=== PATIENT | female | born 1940 | race Caucasian/White ===

== ENCOUNTER 2017-10-03 15:22 | Inpatient (IN) | payer OTHER ==
[~2017-10-03] VITALS: Ht 165.1 cm; Wt 80.7 kg
[2017-10-03] MEDS ORDERED: MORPHINE SULFATE 4 MG/ML, 1ML IVPush PRN (16:00)
[2017-10-03] MEDS ORDERED: ONDANSETRON 2MG/ML, 2ML IVPush ONE (16:00)
[2017-10-03] MEDS ORDERED: NITROGLYCERIN SINGLE TAB 0.4 MG SL PRN (16:00)
[2017-10-03] MEDS ORDERED: SODIUM CHLORIDE FLUSH 10ML SYR IVF ONE (16:00)
[2017-10-03] MEDS ORDERED: NITROGLYCERIN SINGLE TAB 0.4 MG SL ONE (16:08)
[2017-10-03 16:30] LABS: BASOPHILS # (AUTO) 0.04 x10^3/uL (0-0.1); BASOPHILS % (AUTO) 0 % (0-1); EOSINOPHILS # (AUTO) 0.07 x10^3/uL (0-0.4); EOSINOPHILS % (AUTO) 1 % (1-7); LYMPHOCYTES % (AUTO) 21 % (22-44); MD NO; MEAN CORPUSCULAR HEMOGLOBIN 30.3 pg (27.0-34.8); MEAN CORPUSCULAR HGB CONC 33.2 g/dL (32.4-35.8); MEAN CORPUSCULAR VOLUME 91.4 fL (80-100); MEAN PLATELET VOLUME 7.2 fL (7.4-10.4); MONOCYTES # (AUTO) 0.58 x10^3/uL (0.2-0.8); MONOCYTES % (AUTO) 6 % (2-9); NEUTROPHILS # (AUTO) 6.81 x10^3/uL (1.8-6.8); NEUTROPHILS % (AUTO) 72 % (42-75); PLATELET COUNT 281 x10^3/uL (130-400); RED BLOOD COUNT 4.74 x10^6/uL (3.82-5.3); RED CELL DISTRIBUTION WIDTH 14.5 % (9.6-15.2)
[2017-10-03 16:41] LABS: ALANINE AMINOTRANSFERASE 17 U/L (12-78); ALBUMIN 3.7 g/dL (3.4-5.0); ANION GAP 8 mmol/L (5-15); CALCIUM 8.8 mg/dL (8.5-10.1); CHLORIDE 106 mmol/L (98-107); CREATININE 0.92 mg/dL (0.55-1.02); INTERNATIONAL NORMALIZED RATIO 1.02 (0.93-1.1); PROTHROMBIN TIME 10.6 Seconds (9.6-11.5)
[2017-10-03 16:46] LABS: ALKALINE PHOSPHATASE 90 U/L (45-117); BILIRUBIN,TOTAL 0.4 mg/dL (0.2-1.0); TOTAL PROTEIN 7.7 g/dL (6.4-8.2)
[2017-10-03 16:48] LABS: TROPONIN I 0.978 ng/mL (0.000-0.045)
[2017-10-03] MEDS ORDERED: OMNIPAQUE 350 MG/ML, 100ML BOTTLE ONE (17:23)
[2017-10-03] MEDS ORDERED: HEPARIN 25,000 UNITS/500ML PMX 500 ML ONE (17:24)
[2017-10-03] MEDS ORDERED: HEPARIN 5,000 UNITS/ML, 1ML ONE (17:24)
[2017-10-03] MEDS ORDERED: HEPARIN 25,000 UNITS/500ML PMX 500 ML IV PRN ×2 (17:30→18:30)
[2017-10-03] MEDS ORDERED: HEPARIN 5,000 UNITS/ML, 1ML IV PRN (17:30)
[2017-10-03] MEDS ORDERED: HEPARIN 5,000 UNITS/ML, 1ML IV ONE ×2 (17:30→18:30)
[2017-10-03] MEDS ORDERED: SODIUM CHLORIDE FLUSH 10ML SYR IVF PRN (18:00)
[2017-10-03] MEDS ORDERED: ONDANSETRON 2MG/ML, 2ML IVPush PRN (18:30)
[2017-10-03] MEDS ORDERED: POLYETHYLENE GLYCOL 17 GM PACKET PO PRN (18:30)
[2017-10-03] MEDS ORDERED: BISACODYL 10 MG SUPP PR PRN (18:30)
[2017-10-03] MEDS ORDERED: ACETAMINOPHEN 325 MG TABLET PO PRN (18:30)
[2017-10-03 19:30] LABS: INTERNATIONAL NORMALIZED RATIO 1.03 (0.93-1.1); PROTHROMBIN TIME 10.7 Seconds (9.6-11.5)
[2017-10-03] MEDS ORDERED: WARFARIN 5 MG TABLET PO-COUM ONE (21:30)
[2017-10-03 21:44] VITALS: BP 153/96
[2017-10-03 23:30] LABS: TROPONIN I 0.602 ng/mL (0.000-0.045)
[2017-10-03] MEDS: HEPARIN 5,000 UNITS/ML, 1ML IV PRN (23:38)
[2017-10-03] MEDS: SODIUM CHLORIDE FLUSH 10ML SYR IVF SCH (23:45)
[2017-10-04 00:35] VITALS: BP 127/80
[2017-10-04 05:54] LABS: BASOPHILS # (AUTO) 0.05 x10^3/uL (0-0.1); BASOPHILS % (AUTO) 1 % (0-1); EOSINOPHILS # (AUTO) 0.18 x10^3/uL (0-0.4); EOSINOPHILS % (AUTO) 2 % (1-7); LYMPHOCYTES # (AUTO) 2.82 x10^3/uL (1-3.4); LYMPHOCYTES % (AUTO) 34 % (22-44); MD NO; MEAN CORPUSCULAR HEMOGLOBIN 30.7 pg (27.0-34.8); MEAN CORPUSCULAR HGB CONC 33.4 g/dL (32.4-35.8); MEAN CORPUSCULAR VOLUME 92.1 fL (80-100); MEAN PLATELET VOLUME 7.5 fL (7.4-10.4); MONOCYTES # (AUTO) 0.55 x10^3/uL (0.2-0.8); MONOCYTES % (AUTO) 7 % (2-9); NEUTROPHILS # (AUTO) 4.72 x10^3/uL (1.8-6.8); NEUTROPHILS % (AUTO) 57 % (42-75); PLATELET COUNT 254 x10^3/uL (130-400); RED BLOOD COUNT 4.37 x10^6/uL (3.82-5.3); RED CELL DISTRIBUTION WIDTH 14.4 % (9.6-15.2)
[2017-10-04 06:07] LABS: CHLORIDE 108 mmol/L (98-107)
[2017-10-04 06:09] LABS: INTERNATIONAL NORMALIZED RATIO 1.02 (0.93-1.1); PROTHROMBIN TIME 10.6 Seconds (9.6-11.5)
[2017-10-04 06:28] LABS: ALANINE AMINOTRANSFERASE 15 U/L (12-78); ALBUMIN 3.2 g/dL (3.4-5.0); ALKALINE PHOSPHATASE 79 U/L (45-117); ANION GAP 12 mmol/L (5-15); BILIRUBIN,TOTAL 0.5 mg/dL (0.2-1.0); CALCIUM 8.3 mg/dL (8.5-10.1); CREATININE 0.83 mg/dL (0.55-1.02); TOTAL PROTEIN 6.8 g/dL (6.4-8.2)
[2017-10-04 07:25] VITALS: BP 122/83
[2017-10-04] MEDS: SENNA/DOCUSATE TABLET PO SCH (09:00)
[2017-10-04] MEDS: SODIUM CHLORIDE FLUSH 10ML SYR IVF SCH ×2 (09:49→20:22)
[2017-10-04] MEDS: HEPARIN 5,000 UNITS/ML, 1ML IV PRN (12:45)
[2017-10-04 14:30] VITALS: BP 116/82
[2017-10-04] MEDS: RIVAROXABAN 15 MG TABLET PO SCH (17:41)
[2017-10-04 20:06] VITALS: BP 124/84
[2017-10-04] MEDS: FAMOTIDINE 20 MG TABLET PO SCH (20:22)
[2017-10-05 04:12] VITALS: BP 125/78
[2017-10-05 05:52] LABS: BASOPHILS # (AUTO) 0.03 x10^3/uL (0-0.1); BASOPHILS % (AUTO) 0 % (0-1); EOSINOPHILS # (AUTO) 0.18 x10^3/uL (0-0.4); EOSINOPHILS % (AUTO) 2 % (1-7); INTERNATIONAL NORMALIZED RATIO 1.11 (0.93-1.1); LYMPHOCYTES % (AUTO) 25 % (22-44); MD NO; MEAN CORPUSCULAR HEMOGLOBIN 30.7 pg (27.0-34.8); MEAN CORPUSCULAR HGB CONC 33.7 g/dL (32.4-35.8); MEAN CORPUSCULAR VOLUME 91.1 fL (80-100); MEAN PLATELET VOLUME 7.5 fL (7.4-10.4); MONOCYTES # (AUTO) 0.68 x10^3/uL (0.2-0.8); MONOCYTES % (AUTO) 8 % (2-9); NEUTROPHILS # (AUTO) 5.43 x10^3/uL (1.8-6.8); NEUTROPHILS % (AUTO) 64 % (42-75); PLATELET COUNT 254 x10^3/uL (130-400); PROTHROMBIN TIME 11.5 Seconds (9.6-11.5); RED BLOOD COUNT 4.42 x10^6/uL (3.82-5.3); RED CELL DISTRIBUTION WIDTH 14.6 % (9.6-15.2)
[2017-10-05 05:56] LABS: ANION GAP 8 mmol/L (5-15); CALCIUM 8.6 mg/dL (8.5-10.1); CHLORIDE 110 mmol/L (98-107)
[2017-10-05 05:58] LABS: CREATININE 0.87 mg/dL (0.55-1.02)
[2017-10-05 07:38] VITALS: BP 123/77
[2017-10-05] MEDS: SODIUM CHLORIDE FLUSH 10ML SYR IVF SCH ×2 (09:47→20:23)
[2017-10-05] MEDS: SENNA/DOCUSATE TABLET PO SCH (09:47)
[2017-10-05] MEDS: FAMOTIDINE 20 MG TABLET PO SCH ×2 (09:47→20:23)
[2017-10-05] MEDS: RIVAROXABAN 15 MG TABLET PO SCH ×2 (09:47→18:03)
[2017-10-05 14:26] VITALS: BP 138/78
[2017-10-05 20:20] VITALS: BP 152/89
[2017-10-06 01:50] VITALS: BP 114/74
[2017-10-06 05:04] LABS: BASOPHILS # (AUTO) 0.07 x10^3/uL (0-0.1); BASOPHILS % (AUTO) 1 % (0-1); EOSINOPHILS # (AUTO) 0.19 x10^3/uL (0-0.4); EOSINOPHILS % (AUTO) 3 % (1-7); LYMPHOCYTES # (AUTO) 2.12 x10^3/uL (1-3.4); LYMPHOCYTES % (AUTO) 29 % (22-44); MD NO; MEAN CORPUSCULAR HEMOGLOBIN 30.5 pg (27.0-34.8); MEAN CORPUSCULAR HGB CONC 33.4 g/dL (32.4-35.8); MEAN CORPUSCULAR VOLUME 91.3 fL (80-100); MEAN PLATELET VOLUME 7.4 fL (7.4-10.4); MONOCYTES # (AUTO) 0.68 x10^3/uL (0.2-0.8); MONOCYTES % (AUTO) 9 % (2-9); NEUTROPHILS # (AUTO) 4.36 x10^3/uL (1.8-6.8); NEUTROPHILS % (AUTO) 59 % (42-75); PLATELET COUNT 251 x10^3/uL (130-400); RED BLOOD COUNT 4.36 x10^6/uL (3.82-5.3); RED CELL DISTRIBUTION WIDTH 14.2 % (9.6-15.2)
[2017-10-06 05:07] LABS: INTERNATIONAL NORMALIZED RATIO 1.29 (0.93-1.1); PROTHROMBIN TIME 13.3 Seconds (9.6-11.5)
[2017-10-06 05:19] LABS: CALCIUM 8.7 mg/dL (8.5-10.1); CHLORIDE 109 mmol/L (98-107)
[2017-10-06 05:23] LABS: ANION GAP 9 mmol/L (5-15); CREATININE 0.82 mg/dL (0.55-1.02)
[2017-10-06 07:27] VITALS: BP 121/72
[2017-10-06] MEDS: FAMOTIDINE 20 MG TABLET PO SCH (07:59)
[2017-10-06] MEDS: RIVAROXABAN 15 MG TABLET PO SCH (07:59)
[2017-10-06] MEDS: SENNA/DOCUSATE TABLET PO SCH (08:00)
[2017-10-06] MEDS: SODIUM CHLORIDE FLUSH 10ML SYR IVF SCH (08:00)
[2017-10-06] MEDS ORDERED: RIVA15TA PO (11:54)
[2017-10-06] MEDS ORDERED: FAMO20TA7 PO (11:54)
[2017-10-06] MEDS ORDERED: RIVA20TA PO (11:57)
[2017-10-06 13:14] VITALS: BP 133/84
== END 2017-10-06 14:09 | disposition home or self-care (01) | DRG 299 ==
LOC: ED 16:39 → EDIP 18:46 → 5SO 21:05 → DCLOUNGE 10-06 13:43
PROVIDERS: ADMIT Internal Medicine; ATTEND Internal Medicine
DX: I82.431 Acute embolism and thrombosis of right popliteal vein (principal); I26.99 Other pulmonary embolism without acute cor pulmonale; D68.69 Other thrombophilia; I27.81 Cor pulmonale (chronic); E78.5 Hyperlipidemia, unspecified; K44.9 Diaphragmatic hernia without obstruction or gangrene; Z79.01 Long term (current) use of anticoagulants; Z80.9 Family history of malignant neoplasm, unspecified; Z82.49 Family history of ischemic heart disease and other diseases of the circulatory system
CPT/HCPCS: 36415; 71045; 71275; 80048; 80053; 83880; 84484; 85025; 85520; 85610; 85730; 93005; 93306; 93970; 96365; J1644; Q9967

== ENCOUNTER 2017-10-08 12:40 | Emergency (ER) | payer OTHER ==
[~2017-10-08] VITALS: Ht 167.6 cm; Wt 80.7 kg
[~2017-10-08 12:40] MED LIST: FAMO20TA7 PO; RIVA15TA PO; RIVA20TA PO
[2017-10-08] MEDS ORDERED: ONDANSETRON 2MG/ML, 2ML ONE (13:28)
[2017-10-08 13:29] LABS: BASOPHILS # (AUTO) 0.04 x10^3/uL (0-0.1); BASOPHILS % (AUTO) 1 % (0-1); EOSINOPHILS # (AUTO) 0.31 x10^3/uL (0-0.4); EOSINOPHILS % (AUTO) 5 % (1-7); LYMPHOCYTES # (AUTO) 2.64 x10^3/uL (1-3.4); LYMPHOCYTES % (AUTO) 42 % (22-44); MD NO; MEAN CORPUSCULAR HEMOGLOBIN 30.3 pg (27.0-34.8); MEAN CORPUSCULAR HGB CONC 33.2 g/dL (32.4-35.8); MEAN CORPUSCULAR VOLUME 91.3 fL (80-100); MEAN PLATELET VOLUME 7.2 fL (7.4-10.4); MONOCYTES # (AUTO) 0.68 x10^3/uL (0.2-0.8); MONOCYTES % (AUTO) 11 % (2-9); NEUTROPHILS # (AUTO) 2.66 x10^3/uL (1.8-6.8); NEUTROPHILS % (AUTO) 42 % (42-75); PLATELET COUNT 301 x10^3/uL (130-400); RED CELL DISTRIBUTION WIDTH 14.8 % (9.6-15.2)
[2017-10-08] MEDS ORDERED: SODIUM CHLORIDE FLUSH 10ML SYR IVF ONE (13:30)
[2017-10-08] MEDS ORDERED: ONDANSETRON 2MG/ML, 2ML IVPush ONE (13:30)
[2017-10-08] MEDS ORDERED: SODIUM CHLORIDE 0.9% 1,000ML IVBOLUS ONE (13:30)
[2017-10-08 13:41] LABS: ALBUMIN 3.7 g/dL (3.4-5.0); ANION GAP 6 mmol/L (5-15); CHLORIDE 108 mmol/L (98-107); CREATININE 1.02 mg/dL (0.55-1.02)
[2017-10-08 13:45] LABS: TROPONIN I < 0.015 ng/mL (0.000-0.045)
[2017-10-08 16:28] VITALS: BP 122/60
== END 2017-10-08 16:31 | disposition home or self-care (01) ==
LOC: ED 16:25
DX: R07.2 Precordial pain (principal); R42 Dizziness and giddiness; J96.01 Acute respiratory failure with hypoxia; Z86.711 Personal history of pulmonary embolism; Z87.891 Personal history of nicotine dependence
CPT/HCPCS: 36415; 71045; 80048; 82040; 84484; 85025; 93005; 96374; 99285; J2405; J7030